=== PATIENT | male | born 2000 | race Caucasian/White ===

== ENCOUNTER 2019-12-29 07:34 | Inpatient (IN) | payer OTHER ==
[~2019-12-29] VITALS: Ht 185.4 cm; Wt 69.6 kg
[~2019-12-29 07:34] MED LIST: KETAMINE 10 MG/ML, 20ML ONE
[2019-12-29 08:29] VITALS: BP 100/61
[2019-12-29] MEDS ORDERED: EPHEDRINE 50 MG/ML, 1ML IM PRN (08:30)
[2019-12-29] MEDS ORDERED: MIDAZOLAM 1 MG/ML, 2ML IV PRN (08:30)
[2019-12-29] MEDS ORDERED: DIAZEPAM 5 MG/ML, 2ML IVPush PRN (08:30)
[2019-12-29] MEDS ORDERED: OXYcodone 5 MG/5 ML ORAL.SOL UDC PO PRN (08:30)
[2019-12-29] MEDS ORDERED: HYDROmorphone 1 MG/ML, 1ML INJ IVPush PRN (08:30)
[2019-12-29] MEDS ORDERED: LABETALOL 5MG/ML, 20ML IV PRN (08:30)
[2019-12-29] MEDS ORDERED: ONDANSETRON 2MG/ML, 2ML IVPush PRN (08:30)
[2019-12-29] MEDS ORDERED: DIPHENHYDRAMINE 50 MG/ML, 1ML IM PRN (08:30)
[2019-12-29] MEDS ORDERED: ALBUTEROL/IPRATROPIUM 2.5MG/0.5MG, 3 ML NPPB PRN (08:30)
[2019-12-29] MEDS ORDERED: METOCLOPRAMIDE 5 MG/ML, 2ML IVPush PRN (08:30)
[2019-12-29] MEDS ORDERED: MEPERIDINE/PF 25MG/0.5ML IVPush PRN (08:30)
[2019-12-29] MEDS ORDERED: LORazepam 2 MG/ML, 1ML IVPush PRN (08:30)
[2019-12-29] MEDS ORDERED: KETOROLAC 30 MG/1 ML IM PRN (08:30)
[2019-12-29] MEDS ORDERED: EPHEDRINE 50 MG/ML, 1ML IVPush PRN (08:30)
[2019-12-29] MEDS ORDERED: DIPHENHYDRAMINE 50 MG/ML, 1ML IVPush PRN ×2 (08:30→23:00)
[2019-12-29] MEDS ORDERED: hydrALAzine 20 MG/ML, 1ML IV PRN (08:30)
[2019-12-29] MEDS ORDERED: HYDROcodone/APAP 7.5-325MG/15ML UDC PO PRN (08:30)
[2019-12-29] MEDS ORDERED: HALOPERIDOL 5 MG/ML IV PRN (08:30)
[2019-12-29] MEDS ORDERED: LACTATED RINGERS 1,000 ML IV SCH (08:33)
[2019-12-29] MEDS ORDERED: CETI10TA76 PO (08:35)
[2019-12-29] MEDS ORDERED: CHLORHEXIDINE 15 ML UDC ONE (08:48)
[2019-12-29] MEDS ORDERED: CHLORHEXIDINE 15 ML UDC MM ONE (09:00)
[2019-12-29] MEDS ORDERED: LIDOCAINE 1%-EPI 1:100K, 20ML ONE (09:21)
[2019-12-29] MEDS ORDERED: OXYMETAZOLINE NASAL SPRAY 0.05%, 15ML ONE (09:21)
[2019-12-29] MEDS ORDERED: NEOSPORIN OINT, 15GM ONE (09:21)
[2019-12-29 09:25] LABS: BASOPHILS # (AUTO) 0.03 x10^3/uL (0-0.3); BASOPHILS % (AUTO) 1 % (0-1); EOSINOPHILS # (AUTO) 0.08 x10^3/uL (0-0.8); EOSINOPHILS % (AUTO) 2 % (1-7); LYMPHOCYTES # (AUTO) 1.83 x10^3/uL (1-6.1); LYMPHOCYTES % (AUTO) 35 % (22-44); MD NO; MEAN CORPUSCULAR HGB CONC 33.7 g/dL (33.2-36.2); MEAN PLATELET VOLUME 8.6 fL (7.4-10.4); MONOCYTES # (AUTO) 0.49 x10^3/uL (0-1.4); MONOCYTES % (AUTO) 9 % (2-9); NEUTROPHILS # (AUTO) 2.84 x10^3/uL (1.8-8.0); NEUTROPHILS % (AUTO) 54 % (42-75); PLATELET COUNT 222 x10^3/uL (130-400); RED BLOOD COUNT 4.98 x10^6/uL (4.38-5.82); RED CELL DISTRIBUTION WIDTH 12.4 % (9.4-14.8)
[2019-12-29 09:32] LABS: INTERNATIONAL NORMALIZED RATIO 1.1 (0.93-1.1); PROTHROMBIN TIME 11.7 Seconds (9.6-11.5)
[2019-12-29] MEDS ORDERED: LIDOCAINE-MPF 2% ,5ML ONE (09:58)
[2019-12-29] MEDS ORDERED: DEXAMETHASONE 4 MG/ML, 1ML ONE ×2 (09:58→18:50)
[2019-12-29] MEDS ORDERED: PROPOFOL 10 MG/ML, 20ML ONE (09:58)
[2019-12-29] MEDS ORDERED: ROCURONIUM 10MG/ML,5ML ONE (09:58)
[2019-12-29] MEDS ORDERED: GLYCOPYRROLATE 0.2MG/1ML, 5ML ONE (09:58)
[2019-12-29] MEDS ORDERED: MIDAZOLAM 1 MG/ML, 5ML ONE (09:58)
[2019-12-29] MEDS ORDERED: SCOPOLAMINE 1MG PATCH TD STA (10:39)
[2019-12-29] MEDS ORDERED: SCOPOLAMINE 1MG PATCH TD ONE ×2 (10:40→11:00)
[2019-12-29] MEDS ORDERED: METOCLOPRAMIDE 5 MG/ML, 2ML ONE (11:24)
[2019-12-29] MEDS ORDERED: ONDANSETRON 2MG/ML, 2ML ONE (11:24)
[2019-12-29] MEDS ORDERED: BUPIVACAINE/PF-EPI 0.25% 1:200K ONE ×2 (15:56→17:22)
[2019-12-29] MEDS ORDERED: CEFAZOLIN 1,000 MG ONE (18:50)
[2019-12-29] MEDS ORDERED: FENTANYL PF 100 MCG/2ML ONE (19:47)
[2019-12-29] MEDS: FENTANYL PF 100 MCG/2ML IV PRN ×2 (19:50→20:50)
[2019-12-29] MEDS ORDERED: KETOROLAC 30 MG/1 ML ONE (20:55)
[2019-12-29] MEDS ORDERED: HYDROmorphone PCA 30 MG/30 ML IV PRN (21:00)
[2019-12-29] MEDS: KETOROLAC 30 MG/1 ML IVPush PRN (21:00)
[2019-12-29] MEDS ORDERED: MORPHINE SULFATE 4 MG/ML, 1ML IV PRN (22:30)
[2019-12-29] MEDS ORDERED: ONDANSETRON 2MG/ML, 2ML IV PRN (22:30)
[2019-12-29] MEDS: DEXAMETHASONE 4 MG/ML, 1ML IV SCH (22:52)
[2019-12-29] MEDS: D5%-0.45NACL+KCL 20MEQ 1,000 ML IV SCH (22:53)
[2019-12-29] MEDS: CEFAZOLIN PMX 2GM/50ML 50 ML IVPB SCH (22:53)
[2019-12-29] MEDS ORDERED: DIPHENHYDRAMINE 25 MG CAPSULE PO PRN (23:00)
[2019-12-29] MEDS ORDERED: OXYcodone IR 5MG TABLET PO PRN (23:00)
[2019-12-30 00:14] VITALS: BP 132/73
[2019-12-30] MEDS: KETOROLAC 30 MG/1 ML IVPush PRN ×2 (03:12→09:21)
[2019-12-30 03:24] VITALS: BP 124/60
[2019-12-30] MEDS: DEXAMETHASONE 4 MG/ML, 1ML IV SCH (06:31)
[2019-12-30] MEDS: CEFAZOLIN PMX 2GM/50ML 50 ML IVPB SCH ×2 (06:31→14:03)
[2019-12-30 07:54] VITALS: BP 134/80
[2019-12-30] MEDS ORDERED: BUPROPION SR 150 MG TABLET PO SCH (09:00)
[2019-12-30] MEDS: D5%-0.45NACL+KCL 20MEQ 1,000 ML IV SCH (11:36)
[2019-12-30 13:53] VITALS: BP 116/59
[2019-12-30] MEDS ORDERED: ONDANSETRON ODT 4 MG PO PRN (14:00)
== END 2019-12-30 15:20 | disposition home or self-care (01) | DRG 132 ==
LOC: ORIP 07:34 → 4NE 22:02 → DCLOUNGE 12-30 15:05
PROVIDERS: ADMIT Oral & Maxillofacial Surgery; ATTEND Oral & Maxillofacial Surgery
PROC: 0NSR04Z Reposition Maxilla with Internal Fixation Device, Open Approach (ICD-10-PCS; principal; 2019-12-30)
PROC: 0NUR07Z Supplement Maxilla with Autologous Tissue Substitute, Open Approach (ICD-10-PCS; 2019-12-30)
DX: M26.4 Malocclusion, unspecified (principal); F32.9 Major depressive disorder, single episode, unspecified; J30.2 Other seasonal allergic rhinitis; M26.01 Maxillary hyperplasia; M26.02 Maxillary hypoplasia; K00.0 Anodontia
CPT/HCPCS: 36415; J3490; 85014; 85018; 85025; 85610; 85730; 87635; C1713; G0378; J0690; J1100; J1170; J1885; J2250; J2405; J2704; J3010; Q0162; C1762; J2765; J3480; J7120